=== PATIENT | male | born 1955 | race Caucasian/White ===

== ENCOUNTER 2016-11-23 08:39 | Day surgery (SDC) | payer OTHER ==
[2016-11-23] MEDS ORDERED: Lactated Ringers 1,000 ML IV SCH (09:00)
[2016-11-23] MEDS ORDERED: fentaNYL 100 MCG/2 ML SDV ONE (09:21)
[2016-11-23] MEDS ORDERED: Midazolam 1 MG/ML 2 ML SDV ONE (09:21)
[2016-11-23] MEDS ORDERED: Propofol 200 MG/20 ML SDV ONE (09:21)
[2016-11-23 11:47] VITALS: BP 137/84
--- NOTE | 2016-11-23 14:36 | OR ---
DATE OF PROCEDURE: 11/23/2016 POSTOPERATIVE DIAGNOSIS: Positive fecal immunochemical test. POSTOPERATIVE DIAGNOSES: Positive fecal immunochemical test, etiology unknown; diverticulosis; multiple colon polyps. PROCEDURE PERFORMED: Colonoscopy to the cecum with biopsy resection of small cecal polyp, biopsy resection of small transverse colon polyp, and snare cautery polypectomy of transverse colon polyp, both sent as one specimen. Snare cautery polypectomy at 15 cm from the anal verge, and biopsy resection of small rectal polyp. ANESTHESIA: IV anesthesia with monitored anesthesia care. INDICATION: This 61-year-old white male is referred for a colonoscopy because of a positive FIT test. He has never had a colonoscopic exam. I counseled him for the procedure including risks and alternatives. He gave his informed consent to proceed. DESCRIPTION OF PROCEDURE: The patient was placed in the left lateral decubitus position. IV anesthesia was administered by the Anesthesia Service. Time-out was held. A rectal exam was performed, which was unremarkable. The flexible video Olympus colonoscope was introduced through his anus, up his rectum, and out his colon all the way to the cecum. En route, we saw a few scattered left-sided diverticula. There was no bleeding or inflammation associated with them. Additionally en route to the cecum, we encountered two transverse colon polyps, one was large enough to remove with a snare. This was done by placing the snare about its base, elevating up away from the bowel wall and applying electrocautery as the polyp was amputated. It ultimately was aspirated up through the scope and captured in a polyp trap. Another polyp, much smaller near this first polyp was seen and removed with the biopsy forceps. It was sent to the laboratory in the same specimen container as the first transverse colon polyp. Once the cecum was reached, it was noted that there was a small polyp in the cecum, which was removed with the biopsy forceps. The scope was then slowly withdrawn, examining the mucosa throughout. At 15 cm from the anal verge, we saw a prominent pedunculated polyp. The snare was passed about the stalk. The snare was tightened up, and the polyp was amputated as electrocautery was applied. It was aspirated up through the scope and captured in a polyp trap. The scope was brought back into the rectum where another small polyp was seen. This was removed with the biopsy forceps and sent to the laboratory. The scope was retroflexed. The most distal rectum appeared unremarkable. The scope was straightened and removed. He tolerated the procedure well. Heath Monzon MD /[id number] MTDD
== END 2016-11-23 11:30 | disposition home or self-care (01) ==
LOC: JP.SDS 08:39
PROVIDERS: ATTEND Surgery
DX: D12.3 Benign neoplasm of transverse colon (principal); D12.0 Benign neoplasm of cecum; D12.5 Benign neoplasm of sigmoid colon; K62.1 Rectal polyp; K57.30 Diverticulosis of large intestine without perforation or abscess without bleeding; I35.0 Nonrheumatic aortic (valve) stenosis; E78.00 Pure hypercholesterolemia, unspecified; R73.03 Prediabetes; L30.9 Dermatitis, unspecified; J44.9 Chronic obstructive pulmonary disease, unspecified; J98.01 Acute bronchospasm; F17.200 Nicotine dependence, unspecified, uncomplicated; M19.90 Unspecified osteoarthritis, unspecified site; Z79.899 Other long term (current) drug therapy
CPT/HCPCS: 45380; 45385; J2250; J2704; J3010; 88305

== ENCOUNTER 2017-11-27 06:55 | Day surgery (SDC) | payer OTHER ==
[2017-11-27] MEDS ORDERED: Midazolam 1 MG/ML 2 ML SDV ONE (08:08)
[2017-11-27] MEDS ORDERED: fentaNYL 100 MCG/2 ML SDV ONE (08:08)
[2017-11-27] MEDS ORDERED: Propofol 200 MG/20 ML SDV ONE (08:08)
[2017-11-27] MEDS ORDERED: Lactated Ringers 1,000 ML IV SCH (09:30)
[2017-11-27 10:04] VITALS: BP 177/92
--- NOTE | 2017-11-27 10:26 | OR ---
DATE OF PROCEDURE: 11/27/2017 PREOPERATIVE DIAGNOSIS: History of colon polyps. POSTOPERATIVE DIAGNOSES: Diverticulosis, small cecal and rectal polyps. PROCEDURE PERFORMED: Colonoscopy to the cecum with biopsy resection of small cecal and rectal polyps. SURGEON: Heath Monzon M.D. ANESTHESIA: IV anesthesia with monitored anesthesia care. INDICATION: This 62-year-old white male is here for a colonoscopy because of a history of 5 colon polyps removed a year ago, 4 of which were precancerous. I counseled him for the procedure, including risks and alternatives, and he gave his informed consent to proceed. DESCRIPTION OF PROCEDURE: The patient was placed in the left lateral decubitus position. IV anesthesia was administered by the Anesthesia Service. Time-out was held. A rectal exam was performed, which was unremarkable. The flexible video Olympus colonoscope was introduced through his anus, up his rectum, and out his colon, all the way to the cecum. En route, we saw multiple left-sided diverticula. There was no bleeding or inflammation associated with any of them. In the cecum, we saw a small polyp, which was removed with the biopsy forceps. The scope was then slowly withdrawn, examining the mucosa throughout. No additional mucosal abnormalities were noted until we reached the rectum. Here, we saw a couple of polyps adjacent to each other, which were removed and sent to the laboratory as one specimen. The scope was retroflexed in the rectum with the distal rectum appearing unremarkable. The scope was straightened and removed. He tolerated the procedure well. Heath Monzon MD /[id number]
== END 2017-11-27 10:07 | disposition home or self-care (01) ==
LOC: JP.SDS 06:55
PROVIDERS: ATTEND Surgery
DX: Z12.11 Encounter for screening for malignant neoplasm of colon (principal); K63.5 Polyp of colon; K57.30 Diverticulosis of large intestine without perforation or abscess without bleeding; J44.9 Chronic obstructive pulmonary disease, unspecified; E78.5 Hyperlipidemia, unspecified; R73.03 Prediabetes; Z86.010 Personal history of colon polyps; F17.200 Nicotine dependence, unspecified, uncomplicated
CPT/HCPCS: 45380; J2250; J2704; J3010; J7120